=== PATIENT | male | born 1975 | race Caucasian/White ===

== ENCOUNTER → 2016-09-04 | Outpatient (CLI) | payer MEDICARE, MEDICAID ==
--- NOTE | ~2016-09-04 | NDGEN ---
PATIENT'S NAME: GOLD SPIVEY [facility] AGE: 41 Y [address] ROOM: [place] [address] LOCATION: [facility] ADMIT DATE: 09/04/2016 Neurodiagnostics DISCHARGE DATE: FAMILY PHYSICIAN: Sherrie Elliott PA-C ATTENDING PHYSICIAN: ANAY MCKEON PROCEDURE: ELECTROENCEPHALOGRAM DATE OF PROCEDURE: 09/04/2016 TIME: 10:30 a.m. INDICATION: This 41-year-old male patient has a history of a head injury. The EEG was done to rule out any evidence of any background abnormalities such as epileptiform features. DESCRIPTION: This 20-lead EEG, which was done with the patient alert, was also performed with photic stimulation. The patient kept his eyes open essentially throughout the whole study. The general background rhythm reveals general background rhythm of around 8 Hz approaching an alpha rhythm for the patient's age. It was probably a bit slow in the background rhythm as the patient did not close his eyes which would have likely sped up the background rhythm. He had some normalization of the background rhythm at around 9 Hz at some portion which would be considered normal for the patient's age. At no time were there any epileptiform features seen, and no seizures were recorded. IMPRESSION: This is essentially a normal EEG for age. No epileptiform features seen, and no seizure activity was recorded. MD BARNEY REDDY/ely /[id number] dtt: 09/10/16 1143 , ANAY MCKEON. dtd: 09/05/16 1127
== END | disposition disaster alternative care site (69) ==
LOC: GNEU 10:00
DX: R56.9 Unspecified convulsions (principal)